=== PATIENT | male | born 1975 | race Two or more races ===

== ENCOUNTER 2017-02-22 17:30 | Emergency (ER) | payer MEDICAID ==
[~2017-02-22] VITALS: Ht 162.6 cm; Wt 71.7 kg
[~2017-02-22 17:30] MED LIST: AUGMENTIN 875-1 EAC1 ORAL; CYCLOBENZAPRINE10 MG ORAL; IBUPROFEN600 MG ORAL; NKM
[2017-02-22 18:23] VITALS: BP 120/73
[2017-02-22 18:48] LABS: BASOPHILS % (AUTO) 1.5 % (0.0-2.0); EOSINOPHILS % (AUTO) 7.7 % (0.0-3.0); MEAN CORPUSCULAR HEMOGLOBIN 30.2 PG (27.0-31.0); MEAN CORPUSCULAR HGB CONC 35.5 G/DL (32.0-36.0); MEAN CORPUSCULAR VOLUME 85 FL (80-99); MEAN PLATELET VOLUME 7.7 FL (6.5-10.1); MONOCYTES % (AUTO) 9.5 % (1.0-10.0); NEUTROPHILS % (AUTO) 49.2 % (45.0-75.0); PLATELET COUNT 170 K/UL (150-450); RED BLOOD COUNT 4.38 M/UL (4.70-6.10); RED CELL DISTRIBUTION WIDTH 12.1 % (11.6-14.8); WHITE BLOOD COUNT 6.1 K/UL (4.8-10.8)
[2017-02-22 19:17] LABS: TROPONIN I < 0.30 ng/mL (<=0.30)
[2017-02-22 19:21] LABS: ALANINE AMINOTRANSFERASE 21 U/L (3-41); ALBUMIN/GLOBULIN RATIO 1.5 (1.0-2.7); ANION GAP 10 (5-15); ASPARTATE AMINO TRANSFERASE 19 U/L (5-40); CALCIUM 8.7 mg/dL (8.6-10.2); CARBON DIOXIDE 27 mEQ/L (20-30); CHLORIDE 103 mEQ/L (98-107); CREATININE 0.7 mg/dL (0.7-1.2); GLOMERULAR FILTRATION RATE > 60 mL/min (>60); HEMOLYSIS 11; POTASSIUM 3.7 mEQ/L (3.4-4.9); SODIUM 140 mEQ/L (135-145); TOTAL PROTEIN 6.3 g/dL (6.6-8.7)
[2017-02-22 19:31] LABS: CKMB 3.2 ng/mL (< 6.7)
[2017-02-22] MEDS ORDERED: IBUPROFEN600 MG ORAL (19:48)
[2017-02-22 20:00] VITALS: BP 118/69
--- NOTE | 2017-02-22 20:11 | Emergency Room Report ---
History of Present Illness General Chief Complaint: Chest Pain Source: Patient Present Illness HPI 42-year-old male presents to ED complaining of chest pain for 4 days. States pain is midsternal, 5/10, sharp, nonradiating. Comes and goes. Denies shortness of breath. Denies smoking or drug use. Denies history of hypertension or diabetes. Patient states at times he feels his heart is racing. No other aggravating relieving factors. Denies any other associated symptoms Allergies: Coded Allergies: No Known Allergies (Unverified , 10/11/15) Patient History Past Medical History: none Past Surgical History: none Pertinent Family History: none Social History: Denies: alcohol use, drug use, smoking Immunizations: UTD Reviewed Nursing Documentation: PMH: Agreed, PSxH: Agreed Nursing Documentation-PMH Past Medical History: No Stated History Review of Systems All Other Systems: negative except mentioned in HPI Physical Exam Vital Signs Date Time Temp Pulse Resp B/P Pulse Ox O2 Delivery O2 Flow Rate FiO2 02/22/17 17:35 97.9 66 17 130/85 98 Room Air Sp02 EP Interpretation: reviewed, normal General Appearance: no apparent distress, alert, GCS 15, non-toxic Head: normocephalic, atraumatic Eyes: bilateral eye PERRL, bilateral eye normal inspection ENT: hearing grossly normal, normal pharynx, no angioedema, normal voice Neck: full range of motion, supple/symm/no masses Respiratory: chest non-tender, lungs clear, normal breath sounds, speaking full sentences Cardiovascular #1: regular rate, rhythm, no edema Cardiovascular #2: 2+ carotid (R), 2+ carotid (L), 2+ radial (R), 2+ radial (L) , 2+ dorsalis pedis (R), 2+ dorsalis pedis (L) Gastrointestinal: normal bowel sounds, non tender, soft, non-distended, no guarding, no rebound Rectal: deferred Genitourinary: normal inspection, no CVA tenderness Musculoskeletal: back normal, gait/station normal, normal range of motion, non- tender Neurologic: alert, oriented x3, responsive, motor strength/tone normal, sensory intact, speech normal Psychiatric: judgement/insight normal, memory normal, mood/affect normal, no suicidal/homicidal ideation Reflexes: 3+ bicep (R), 3+ bicep (L), 3+ tricep (R), 3+ tricep (L), 3+ knee (R) , 3+ knee (L) Skin: normal color, no rash, warm/dry, well hydrated Lymphatic: no adenopathy Medical Decision Making Diagnostic Impression: Primary Impression: Chest pain Qualified Codes: R07.9 - Chest pain, unspecified ER Course Hospital Course 42-year-old M presents ED complaining of chest pain x 4 days Differential diagnoses include: Rib fracture, AK/unstable angina, contusion, muscle strain Clinical course Patient placed on stretcher. After initial history and physical I ordered labs , EKG, chest x-ray. labs reviewed- all electrolytes normal, troponins negative, no leukocytosis, hemoglobin/hematocrit stable EKG - NSR, no acute changes interpreted by me Chest x-ray-no cardiomegaly, no rib fracture, no pneumothorax, no acute process per HEART score, patient is at low risk for acute event given lack of risk factors. Patient can be safely discharged to home pending outpatient followup. I. I feel this is a highly complex case requiring extensive working including EKG/Rhythm strip, Xray/CT/US, Blood/urine lab work, repeat exams while in ED, and administration of strong opiates/narcotics for pain control, admission to hospital or close patient follow up. Diagnosis - chest pain Stable and discharged to home. Instructed to followup with PMD. Return to ED if symptoms recur or worsen Labs Test 02/22/17 18:15 White Blood Count 6.1 K/UL (4.8-10.8) Red Blood Count 4.38 M/UL (4.70-6.10) Hemoglobin 13.2 G/DL (14.2-18.0) Hematocrit 37.2 % (42.0-52.0) Mean Corpuscular Volume 85 FL (80-99) Mean Corpuscular Hemoglobin 30.2 PG (27.0-31.0) Mean Corpuscular Hemoglobin Concent 35.5 G/DL (32.0-36.0) Red Cell Distribution Width 12.1 % (11.6-14.8) Platelet Count 170 K/UL (150-450) Mean Platelet Volume 7.7 FL (6.5-10.1) Neutrophils (%) (Auto) 49.2 % (45.0-75.0) Lymphocytes (%) (Auto) 32.0 % (20.0-45.0) Monocytes (%) (Auto) 9.5 % (1.0-10.0) Eosinophils (%) (Auto) 7.7 % (0.0-3.0) Basophils (%) (Auto) 1.5 % (0.0-2.0) Sodium Level 140 mEQ/L (135-145) Potassium Level 3.7 mEQ/L (3.4-4.9) Chloride Level 103 mEQ/L (98-107) Carbon Dioxide Level 27 mEQ/L (20-30) Anion Gap 10 (5-15) Blood Urea Nitrogen 20 mg/dL (7-23) Creatinine 0.7 mg/dL (0.7-1.2) Estimat Glomerular Filtration Rate > 60 mL/min (>60) Glucose Level 125 mg/dL (74-106) Calcium Level 8.7 mg/dL (8.6-10.2) Total Bilirubin 0.4 mg/dL (0.0-1.2) Aspartate Amino Transf (AST/SGOT) 19 U/L (5-40) Alanine Aminotransferase (ALT/SGPT) 21 U/L (3-41) Alkaline Phosphatase 81 U/L (40-129) Total Creatine Kinase 163 U/L (38-174) Creatine Kinase MB 3.2 ng/mL (< 6.7) Creatine Kinase MB Relative Index 1.9 Troponin I < 0.30 ng/mL (<=0.30) Pro-B-Type Natriuretic Peptide 33 pg/mL (0-125) Total Protein 6.3 g/dL (6.6-8.7) Albumin 3.8 g/dL (3.5-5.2) Globulin 2.5 g/dL Albumin/Globulin Ratio 1.5 (1.0-2.7) EKG Diagnostic Results Rate: normal Rhythm: NSR ST Segments: no acute changes ASA given to the pt in ED: No Rhythm Strip Diag. Results EP Interpretation: yes Rhythm: NSR, no PVC's, no ectopy Chest X-Ray Diagnostic Results Chest X-Ray Diagnostic Results : Chest X-Ray Ordered: Yes # of Views/Limited/Complete: 1 View Indication: Chest Pain EP Interpretation: Yes Interpretation: no consolidation, no effusion, no pneumothorax, no acute cardiopulmonary disease Impression: No acute disease Interpreting ER Provider: Electronically signed by Nathen Gardner MD Last Vital Signs Date Time Temp Pulse Resp B/P Pulse Ox O2 Delivery O2 Flow Rate FiO2 02/22/17 18:23 63 17 Room Air 02/22/17 18:23 97.9 120/73 98 Status: improved Disposition: HOME, SELF-CARE Condition: Stable Scripts Ibuprofen* (MOTRIN*) 600 Mg Tablet 600 MG ORAL Q8H Y for For Pain, #30 TAB 0 Refills Prov: NATHEN GARDNER M.D. 02/22/17 Patient Instructions: Nonspecific Chest Pain NATHEN GARDNER M.D. Feb 22, 2017 20:11
[2017-02-22 20:15] VITALS: BP 118/69
--- NOTE | 2017-02-23 11:19 | Diagnostic Imaging Report ---
Indication: Chest pain Comparison: None A single view chest radiograph was obtained. Findings: Cardiomediastinal appearance is within normal limits for age. Pulmonary vascularity is appropriate. The diaphragmatic contour is smooth and costophrenic angles are sharp. No pleural effusions are identified. The bones are unremarkable. Impression: No acute findings
== END 2017-02-22 20:15 | disposition home or self-care (01) ==
LOC: EMR 20:15
DX: R07.89 Other chest pain (principal)
CPT/HCPCS: 36415; 71010; 80053; 82550; 82553; 83880; 84484; 85025; 93005; 96360

== ENCOUNTER 2017-10-16 15:55 | Emergency (ER) | payer MEDICAID ==
[~2017-10-16] VITALS: Ht 165.1 cm; Wt 72.6 kg
--- NOTE | 2017-10-16 16:13 | Emergency Room Report ---
History of Present Illness General Chief Complaint: Male Urogenital Problems Source: Patient Present Illness HPI 42 yo male patient presents to ER complaining of pain in left testicle x3 days. Denies dysuria, hematuria. Denies difficulty with starting urine stream. Denies penile discharge. Denies swelling of testicle. Reports sexually activity with 1 week ago, denies hx of STI, reports mutually monogamous relationship. Denies fever, chest pain, SOB, abdominal pain. Reports up to date on vaccinations. Allergies: Coded Allergies: No Known Allergies (Unverified , 10/11/15) Patient History Past Medical History: see triage record Reviewed Nursing Documentation: PMH: Agreed; PSxH: Agreed Nursing Documentation-PMH Past Medical History: No Stated History Review of Systems All Other Systems: negative except mentioned in HPI Physical Exam Vital Signs Date Time Temp Pulse Resp B/P (MAP) Pulse Ox O2 Delivery O2 Flow Rate FiO2 10/16/17 15:58 99.1 56 17 128/83 97 Room Air 99.1 Sp02 EP Interpretation: reviewed, normal General Appearance: well appearing, no apparent distress, alert, GCS 15, non- toxic Head: normocephalic, atraumatic Eyes: bilateral eye normal inspection, bilateral eye PERRL ENT: hearing grossly normal, normal pharynx, no angioedema, normal voice, uvula midline, moist mucus membranes Neck: full range of motion Respiratory: lungs clear, normal breath sounds, no rhonchi, no respiratory distress, no accessory muscle use, no wheezing, speaking full sentences Cardiovascular #1: regular rate, rhythm, no edema Gastrointestinal: non tender, soft, no mass, non-distended, no guarding, no rebound Genitourinary: no CVA tenderness, penis normal - uncircumsized, scrotum normal , other - no hernia Musculoskeletal: back normal, digits/nails normal, gait/station normal, normal range of motion, non-tender Neurologic: alert, oriented x3, responsive, motor strength/tone normal, sensory intact Psychiatric: mood/affect normal Skin: no rash Lymphatic: no adenopathy Medical Decision Making PA Attestation Dr. Leiva is my supervising Physician whom patient management has been discussed with. Diagnostic Impression: Primary Impression: Epididymal cyst Additional Impressions: Testicular microlithiasis Hydrocele ER Course Pt. presents to the ED c/o testicular pain. Ddx considered but are not limited to testicular torsion, epididymitis, UTI, testicular cyst, varicocele, hydrocele, inguinal hernia. Vital signs: are WNL, pt. is afebrile Ordered UA, testicular US and pain medication. ER COURSE: PE benign, no testicular mass on palpation, no testicular edema, negative inguinal hernia. UA negative for nitrites, 0-2 WBC, UTI unlikely, does not require abx at this time. If concern for STI, followup with STI clinic for testing and treatment. No concern for STI at this time. Testicular US negative for torsion or mass lesion. Bilateral microlithiasis seen , f/u in 6 months for repeat US. Bilateral epididymal cysts, small right hydrocele. Results discussed with patient. Provided with copy of report in ER. Informed patient may be responsible for pain symptoms. Patient reports testicular US performed 3 years ago with similar results. Instructed patient to contact primary care provider and request referral to urology. Need close followup and management by urologist. Patient reports understanding and agreement to treatment plan. DISCHARGE: Rx provided for Tylenol for pain At this time pt. is stable for d/c to home. Patient resting comfortably, in no acute distress, nontoxic appearing, smiling and talking without difficulty. Will provide printed patient care instructions, and any necessary prescriptions. Care plan and follow up instructions have been discussed with the patient prior to discharge. Followup with primary care provider in 3 -5 days. Followup with urologist. Take medications as directed. Patient questions asked and answered. ER precautions given, patient instructed to return to ER immediately for any new or worsening of symptoms including but not limited to fever, nausea, vomiting, worsening of pain. Labs Test 10/16/17 16:15 Urine Color Pale yellow Urine Appearance Clear Urine pH 7 (4.5-8.0) Urine Specific Slinger 1.010 (1.005-1.035) Urine Protein Negative (NEGATIVE) Urine Glucose (UA) Negative (NEGATIVE) Urine Ketones Negative (NEGATIVE) Urine Occult Blood 2+ (NEGATIVE) Urine Nitrite Negative (NEGATIVE) Urine Bilirubin Negative (NEGATIVE) Urine Urobilinogen Normal MG/DL (0.0-1.0) Urine Leukocyte Esterase 1+ (NEGATIVE) Urine RBC 2-4 /HPF (0 - 0) Urine WBC 0-2 /HPF (0 - 0) Urine Squamous Epithelial Cells None /LPF (NONE/OCC) Urine Bacteria Few /HPF (NONE) Last Vital Signs Date Time Temp Pulse Resp B/P (MAP) Pulse Ox O2 Delivery O2 Flow Rate FiO2 10/16/17 15:58 99.1 56 17 128/83 97 Room Air 99.1 Disposition: HOME, SELF-CARE Condition: Stable Scripts Acetaminophen* (TYLENOL EXTRA STRENGTH*) 500 Mg Tablet 500 MG ORAL Q8H PRN for Prn Headache/Temp > 101, #30 TAB 0 Refills Prov: Jhon Meredith 10/16/17 Patient Instructions: Epidermal Cyst, [id number], Hydrocele, Adult Additional Instructions: Followup with primary care provider in 3 -5 days and discuss referral to urology. Need repeat imaging in 6 months or sooner if recommended by urology at followup appointment. Take medications as directed. Patient questions asked and answered. ER precautions given, patient instructed to return to ER immediately for any new or worsening of symptoms. Jhon Meredith Oct 16, 2017 16:13
[2017-10-16] MEDS: Acetaminophen 500mg (ES) tab ORAL ONE (16:23)
[2017-10-16 16:39] LABS: APPEARANCE,URINE CLEAR; BILIRUBIN, URINE NEGATIVE (NEGATIVE); COLOR,URINE PALE YELLOW; GLUCOSE, URINE (UA) NEGATIVE (NEGATIVE); KETONES,URINE NEGATIVE (NEGATIVE); LEUKOCYTE ESTERASE ,URINE 1+ (NEGATIVE); NITRITE,URINE NEGATIVE (NEGATIVE); PH,URINE 7 (4.5-8.0); PROTEIN,URINE NEGATIVE (NEGATIVE); UROBILINOGEN,URINE NORMAL MG/DL (0.0-1.0)
[2017-10-16] MEDS ORDERED: TYLENOL EXTRA500 MG ORAL (18:37)
[2017-10-16 18:41] VITALS: BP 132/84
--- NOTE | 2017-10-17 12:07 | Diagnostic Imaging Report ---
Indication:Scrotal pain Technique: Real time grayscale and duplex Doppler imaging of the scrotum performed. Comparison: None Findings: There is no evidence of intratesticular mass. There is good dopplerable blood flow within both testes which appear homogeneous. Small calcifications are present consistent with microlithiasis within both testes. There are small bilateral epididymal cysts. There is a small amount of fluid surrounding the right testis. IMPRESSION: No evidence of testicular mass or torsion. Small right hydrocele. Testicular microlithiasis.
== END 2017-10-16 18:41 | disposition home or self-care (01) ==
LOC: EMR 17:00
DX: N50.3 Cyst of epididymis (principal); N43.3 Hydrocele, unspecified; N50.89 Other specified disorders of the male genital organs
CPT/HCPCS: 76870; 81003; 99283

== ENCOUNTER 2018-11-05 12:30 | Emergency (ER) | payer MEDICAID ==
[~2018-11-05] VITALS: Ht 165.1 cm; Wt 74.8 kg
[~2018-11-05 12:30] MED LIST changes: +RANITIDINE HCL150 MG ORAL; +TYLENOL EXTRA500 MG ORAL
--- NOTE | 2018-11-05 12:46 | NUR ---
ED Nurse Note: pt walked in to ED due to pain on right knee. per pt, missed step and twisted right knee. heard pop sound. ambulatory with steady gait but having pain while weight on it. AAO x4. respirations even and non-labored noted. skin warm to touch. no open wound noted. will wait for the further order.
[2018-11-05] MEDS ORDERED: Tylenol #3 tab (300mg/30mg) ONE (12:59)
[2018-11-05] MEDS ORDERED: HYDROcodone/Acetamin 5/325 tab ORAL ONE (13:00)
[2018-11-05] MEDS: Tylenol #3 tab (300mg/30mg) ORAL ONE ×2 (13:00→13:06)
--- NOTE | 2018-11-05 13:19 | Emergency Room Report ---
History of Present Illness General Chief Complaint: Lower Extremity Injury Source: Patient Present Illness HPI 43-year-old male presents to the emergency department complaining of 8 out of 10 in severity pain aspect of the right knee 1 hour. Patient reports that he bumped his knee against something and heard a loud pop and instantly had pain in the localized area. Patient reports that he is able to bear weight however bearing weight or walking exacerbates his pain. Patient reports minimal relief with rest he denies previous injury to this extremity. He denies swelling, bruising, open wounds or obvious deformities.Denies numbness tingling or loss of sensation or gross motor movements of the extremities, incontinence of bowel or bladder. Denies CP, Palpitations, LOC, AMS, dizziness, Changes in Vision, weakness or a sudden severe headache. Allergies: Coded Allergies: No Known Allergies (Unverified , 10/11/15) Patient History Past Medical History: see triage record Past Surgical History: none Pertinent Family History: none Immunizations: UTD Reviewed Nursing Documentation: PMH: Agreed; PSxH: Agreed Nursing Documentation-PMH Past Medical History: No Stated History Review of Systems All Other Systems: negative except mentioned in HPI Physical Exam Vital Signs Date Time Temp Pulse Resp B/P (MAP) Pulse Ox O2 Delivery O2 Flow Rate FiO2 11/05/18 12:37 98.6 66 17 132/78 95 Room Air Sp02 EP Interpretation: reviewed, normal General Appearance: no apparent distress, alert, GCS 15, non-toxic Head: normocephalic, atraumatic Eyes: bilateral eye normal inspection, bilateral eye PERRL ENT: hearing grossly normal, normal voice Neck: full range of motion Respiratory: lungs clear, normal breath sounds, speaking full sentences Cardiovascular #1: regular rate, rhythm, normal capillary refill Cardiovascular #2: 2+ dorsalis pedis (R) - post. tib. Musculoskeletal: back normal, gait/station normal, normal range of motion, tender - medial right knee, no increased laxity, no obivious deformities Neurologic: alert, oriented x3, responsive, motor strength/tone normal, sensory intact, speech normal, grossly normal Psychiatric: judgement/insight normal Skin: normal color, no rash, warm/dry, well hydrated Medical Decision Making PA Attestation Dr. pathak is my supervising Physician whom patient management has been discussed with. Diagnostic Impression: Primary Impression: Right knee sprain Qualified Codes: S83.91XA - Sprain of unspecified site of right knee, initial encounter ER Course 43-year-old male presents to the emergency department complaining of 8 out of 10 in severity pain aspect of the right knee 1 hour. Patient reports that he bumped his knee against something and heard a loud pop and instantly had pain in the localized area. Patient reports that he is able to bear weight however bearing weight or walking exacerbates his pain. Patient reports minimal relief with rest he denies previous injury to this extremity. He denies swelling, bruising, open wounds or obvious deformities.Denies numbness tingling or loss of sensation or gross motor movements of the extremities, incontinence of bowel or bladder. Denies CP, Palpitations, LOC, AMS, dizziness, Changes in Vision, weakness or a sudden severe headache. Ddx considered but are not limited to Fracture, dislocation, contusion, Sprain/ Strain/Spasm, meniscal injury just to name a few. Vital signs: are WNL, pt. is afebrile H&PE are most consistent with musculoskeletal injury will perform imaging to r/ o fractures/dislocations. ORDERS: - X-ray Right knee 3 views - negative for fx, Dislocation, or significant soft tissue injury, per preliminary read in ED, and signed by SHRUTI Bales , my supervising physician has reviewed, and agrees with my interpretation. ED INTERVENTIONS: - Tylenol PO Ant wrap applied to the right knee by i&c tech. Pt. remains neurovascularly intact. -Patient is provided with crutches and instructed on their use -I do not identify an emergent condition at this time. With current presentation , pt. is stable for close outpatient follow up and conservative treatment. D/ w pt. to return promptly to ED with worsening or new symptoms.- Pt. verbalizes' understanding and agreement with proposed treatment plan.proposed treatment plan. DISCHARGE: At this time pt. is stable for d/c to home. Will provide printed patient care instructions, and any necessary prescriptions. Care plan and follow up instructions have been discussed with the patient prior to discharge. Other X-Ray Diagnostic Results Other X-Ray Diagnostic Results : X-Ray ordered: Right Knee # of Views/Limited Vs Complete: 3 View Indication: Pain EP Interpretation: Yes SHRUTI Xray: Interpretation reviewed, by supervising MD, and agrees with findings. Interpretation: no dislocation, no soft tissue swelling, no fractures Impression: No acute disease Electronically Signed by: Mariah Bales PA-C Last Vital Signs Date Time Temp Pulse Resp B/P (MAP) Pulse Ox O2 Delivery O2 Flow Rate FiO2 11/05/18 12:37 98.6 66 17 132/78 95 Room Air Disposition: HOME, SELF-CARE Condition: Stable Scripts Ibuprofen* (MOTRIN*) 600 Mg Tablet 600 MG ORAL THREE TIMES A DAY, #30 TAB 0 Refills Prov: Mariah Bales 11/05/18 Referrals: NOT CHOSEN IPA/MD,REFERRING (PCP) Patient Instructions: Knee Sprain Additional Instructions: Take medications as directed. Follow up with an MECHANICAL SPECIALIST in 5 days, even if your symptoms have resolved. If symptoms persist MRI may be required at the discretion of your PCP or Ortho Specialist. --Please review list of primary care clinics, if you do not already have a primary care provider who can give you an Orthopedic Referral. Return sooner to ED if new symptoms occur, or current symptoms become worse. - Please note that this Emergency Department Report was dictated using [employer] machine builder technology software, occasionally this can lead to erroneous entry secondary to interpretation by the dictation equipment. Mariah Bales Nov 05, 2018 13:19
[2018-11-05] MEDS ORDERED: IBUPROFEN600 MG ORAL (14:02)
[2018-11-05 14:10] VITALS: BP 127/70
--- NOTE | 2018-11-05 14:12 | NUR ---
ER DISCHARGE NOTE: Patient is cleared to be discharged per ERMD, pt is aox4, on room air, with stable vital signs. pt was given dc and prescription instructions, pt was able to verbalize understanding, pt id band removed. pt is able to ambulate with steady gait. pt took all belongings.
--- NOTE | 2018-11-05 14:13 | Diagnostic Imaging Report ---
Indication: Right knee pain, trauma Technique: 3 views of the right knee Comparison: None Findings: No acute fractures. No dislocations. No suprapatellar effusion. The joint spaces are preserved Impression: Negative
== END 2018-11-05 14:12 | disposition home or self-care (01) ==
LOC: EMR 12:55
DX: S83.91XA Sprain of unspecified site of right knee, initial encounter (principal); W22.8XXA Striking against or struck by other objects, initial encounter; Y92.9 Unspecified place or not applicable
CPT/HCPCS: 99283